=== PATIENT | male | born 1965 | race Caucasian/White ===

== ENCOUNTER 2023-10-12 15:25 | Observation (INO) ==
--- NOTE | 2023-10-12 16:02 | Emergency Department Note ---
Impression & Plan Acute cholecystitis, Abdominal pain, acute, right upper quadrant ED Provider Note NAME: DERECK ARTEAGA AGE: 58 SEX: M : 1965 ARRIVES VIA: Walk-In INFORMANT: Patient, ED PROVIDER(S): Isaias Florez DO CHIEF COMPLAINT: Abdominal pain HPI: The patient is a 58-year-old male who presented to the emergency department for abdominal pain. He notices the pain on the right side. He states he does have generalized abdominal tenderness but notices it mostly right upper quadrant under the ribs. He denies having any vomiting but has had nausea. He denies having any hematemesis or rectal bleeding. The patient's not been seen by his family doctor but came to the emergency department. He did note some symptoms yesterday that worsened after he ate breakfast this morning. He has a history of gastric bypass. ROS: See above HPI for pertinent positives & negatives. A total of 10 systems reviewed and were otherwise negative. PAST MEDICAL HISTORY: See Below PAST SURGICAL HISTORY: See Below FAMILY HISTORY: See Below SOCIAL HISTORY: See Below HOME MEDICATIONS: See Below ALLERGIES: See Below VITALS: See Below PHYSICAL EXAMINATION: GENERAL: Patient is awake alert in no acute distress patient is resting comfortably and showing no signs of anxiety EYES: The conjunctivae are clear. The pupils are round and reactive. EARS, NOSE, MOUTH AND THROAT: The nose is without any evidence of any deformity. Mucous membranes are moist. Tongue is midline. NECK: The neck is nontender and supple. RESPIRATORY: Normal respiratory effort is noted there is no evidence of wheezing rhonchi or rales CARDIOVASCULAR: Regular rate and rhythm noted there no murmurs rubs or gallops normal S1 normal S2. GASTROINTESTINAL: The abdomen is soft and nondistended. There is right upper quadrant tenderness to palpation which is moderate. BACK: No midline tenderness or or step-off noted range of motion in flexion extension as well as rotation no signs of muscle spasm noted MUSCULOSKELETAL/EXTREMITIES: There is no evidence of gross deformity full range of motion is noted in the hips and shoulders. SKIN: There is no obvious evidence of any rash. There are no petechiae, pallor or cyanosis noted. NEUROLOGIC: Patient is awake alert and oriented x3 MEDICAL DECISION MAKING: The patient is a 58-year-old male who presented to the emergency department for right upper quadrant abdominal pain. The patient does have a history of gastric bypass. Abdomen was soft but he does have significant right upper quadrant tenderness to palpation. I discussed the patient's laboratory and radiographic studies with him. Laboratory studies were very reassuring with no elevation in his white blood cell count or abnormal LFTs. Ultimately though the patient was found to have signs of cholecystitis on right upper quadrant ultrasound. I discussed his condition with the on-call general surgeon as well as the on-call [facility] hospitalist. They have agreed to evaluate the patient for further management. Surgery did recommend an MRCP as well as possible GI consultation given the dilated common bile duct. Triage Nursing notes reviewed. Prior medical records reviewed Vital Signs: reviewed and remarkable for elevated blood pressure. Differential diagnosis: Etiologies such as appendicitis, diverticulitis, obstruction, inflammatory bowel disease, renal colic, PUD, biliary pathology, pancreatitis, mesenteric ischemia, aortic pathology, infections, genitourinary, UTI, perforated viscus, as well as others were entertained. ER treatment provided: See below Diagnostics interpreted by me: ECG: none Cardiac Monitoring: An order was placed for continuous cardiac monitoring. The monitor shows a rate of 85 bpm with sinus rhythm. Laboratory studies: As stated above and show below. Imaging studies: See below. Radiographic imaging was reviewed by myself Consultation(s): I discussed this case with Dr. Salomon who is on-call for general surgery. I discussed this case with Dr. Hatch [facility] Past Med/Surg History Problem List (Updated 10/12/23 @ 18:03 by Isaias Florez DO) Abdominal pain, acute, right upper quadrant (Acute) Acute cholecystitis (Acute) Surgical History H/O gastric bypass Social History Smoking Status: Former smoker Feels Safe at Home: Yes Allergies Allergies Allergy/AdvReac Type Severity Reaction Status Date / Time itraconazole Allergy Mild RASH Verified 04/06/09 03:04 Results & Data (ED) Vital Signs Vital Signs - 24 hr 10/12/23 15:29 10/12/23 16:00 10/12/23 16:20 Temperature 36.9 C Temperature Source Temporal Artery Scan Pulse Rate 83 79 81 Pulse Rhythm Regular Respiratory Rate 18 16 Respiratory Effort / Characteristics Non-Labored Spontaneous Respiratory Depth Normal Respiratory Pattern Regular Blood Pressure 173/90 H Blood Pressure Mean 117 Pulse Oximetry 98 94 Oxygen Delivery Method Room Air Room Air Sepsis Recent Fever Within 48 Hours No Sepsis New/Unexplained Change in Mental Status N/A Sepsis Action Taken by Nursing No Action Required 10/12/23 16:30 10/12/23 17:30 10/12/23 18:00 Temperature Temperature Source Pulse Rate 74 79 85 Pulse Rhythm Respiratory Rate 22 14 12 Respiratory Effort / Characteristics Respiratory Depth Respiratory Pattern Blood Pressure 168/90 H 169/95 H 174/97 H Blood Pressure Mean 127 125 124 Pulse Oximetry 99 96 96 Oxygen Delivery Method Sepsis Recent Fever Within 48 Hours Sepsis New/Unexplained Change in Mental Status Sepsis Action Taken by [facility] Medications Current Medication List: was personally reviewed by me Laboratory Data Attestation: I reviewed the patient's lab results. 10/12/23 15:53 10/12/23 15:53 Lab Results 10/12/23 Range/Units 15:53 WBC 5.03 (4.8-10.8) K/ul RBC 5.07 (4.70-6.10) M/uL Hgb 16.0 (14.0-18.0) g/dl Hct 45.4 (42.0-52.0) % MCV 89.5 (80.0-100.0) fL MCH 31.6 (25.0-34.0) pg MCHC 35.2 (32.0-36.0) g/dL RDW Std Deviation 39.1 (36.4-46.3) fL RDW Coeff of Yann 11.9 (11.5-14.5) % Plt Count 166 (130-400) K/uL MPV 9.5 (9.4-12.4) fL Immature Gran % (Auto) 0.4 % Neut % (Auto) 65.2 % Lymph % (Auto) 20.5 % [place] % (Auto) 10.1 % Eos % (Auto) 2.6 % Baso % (Auto) 1.2 % Neut # (Auto) 3.28 (1.40-6.50) K/uL Lymph # (Auto) 1.03 L (1.20-3.40) K/uL [place] # (Auto) 0.51 (0.11-0.59) K/uL Eos # (Auto) 0.13 (0.00-0.50) K/uL Baso # (Auto) 0.06 (0.00-0.20) K/uL Immature Gran # (Auto) 0.02 (0.01-0.20) K/uL Sodium 138 (136-145) mmol/L Potassium 3.9 (3.5-5.1) mmol/L Chloride 102 (98-107) mmol/L Carbon Dioxide 26 (21-32) mmol/L Anion Gap 10 (3-11) BUN 11 (6-23) mg/dl Creatinine 0.91 (0.6-1.4) mg/dl Est Cr Clr Drug Dosing 103.8 ml/min Est GFR ( Amer) 107.3 ml/min Est GFR (Non-Af Amer) 92.6 ml/min BUN/Creatinine Ratio 12.1 (10-20) Glucose 99 (70-99(Fasting)) mg/dl Calcium 9.2 (8.6-10.3) mg/dl Total Bilirubin 0.4 (0.2-1.0) mg/dl AST 19 (13-39) U/L ALT 13 (7-52) U/L Alkaline Phosphatase 47 (34-104) U/L Total Protein 7.2 (6.0-8.3) gm/dl Albumin 4.8 (3.4-5.0) gm/dl Globulin 2.4 L (2.5-4.0) gm/dl Albumin/Globulin Ratio 2.0 (0.9-2) Lipase 23 (11-82) U/L Urine Color Yellow Urine Appearance Clear (Clear) Urine pH 5.5 (4.5-7.5) Ur Specific [place] 1.006 (1.000-1.030) Urine Protein Negative (Negative) Urine Glucose (UA) Negative (Negative) Urine Ketones Negative (Negative) Urine Blood Negative (Negative) Urine Nitrite Negative (Negative) Urine Bilirubin Negative (Negative) Urine Urobilinogen Negative (Negative) Ur Leukocyte Esterase Negative (Negative) Administered Medications Morphine Sulfate (Morphine Sulfate 4 Mg/Ml 1 Ml Carp\Vial) 4 mg IV Q15M PRN PRN Reason: Pain Stop: 10/26/23 15:58 Last Admin: 10/12/23 16:33 Dose: 4 mg Documented By: Admin: 10/12/23 16:12 Dose: 4 mg Documented By: MALINI Discontinued Medications Sodium Chloride (Nss) 1,000 mls @ 999 mls/hr IV .Q1H1M STA Stop: 10/12/23 16:59 Last Infusion: 10/12/23 17:14 Dose: Infused Documented By: Admin: 10/12/23 16:12 Dose: 999 mls/hr Documented By: MALINI Ondansetron HCl (Ondansetron Inj 2 Mg/Ml 2 Ml Vial) 4 mg IV NOW STA Stop: 10/12/23 16:00 Last Admin: 10/12/23 16:12 Dose: 4 mg Documented By: MALINI Imaging Data Attestation: I personally reviewed and interpreted this imaging study as follows: My Impression: 1 view chest x-ray was obtained in the emergency department. My interpretation is no free air or definite full tray, final report below. Radiologist's Impression: Chest X-Ray 10/12/23 15:59 XR chest 1V portable HISTORY: 58 years-old Male RUQ pain acute right upper quadrant abdominal pain COMPARISON: 07/12/2005 TECHNIQUE: AP view of the chest FINDINGS: Cardiac silhouette is upper limits of normal in size. Mild chronic interstitial coarsening. No pneumothorax or pleural effusion. Bones appear grossly intact. IMPRESSION: No acute process. ACT 112: Negative or not required by law. The above report was generated using voice recognition software. It may contain grammatical, syntax or spelling errors. Electronically signed by: Zi Barth M.D. 10/12/2023 4:33 PM Gallbladder Ultrasound 10/12/23 15:59 ABDOMINAL ULTRASOUND, RIGHT UPPER QUADRANT HISTORY: RUQ pain. COMPARISON: None. FINDINGS: Pancreas: The pancreatic tail is obscured by overlying bowel gas. The remaining portions of the pancreas are within normal limits. Liver: 22 cm in length. No hepatic masses. The main portal vein is patent. Gallbladder: The gallbladder is distended and contains multiple gallstones. No definite gallbladder wall thickening which measures up to 2 mm. Trace pericholecystic fluid is noted. The technologist reports a positive sonographic Shaw sign. CBD: Dilated up to 1.1 cm. Right kidney: No hydronephrosis. IMPRESSION: 1. Distended gallbladder with multiple gallstones and trace pericholecystic fluid. The technologist reported a positive sonographic Shaw sign. Therefore, these findings are concerning for an acute cholecystitis. Surgical consultation recommended. 2. Dilated common bile duct measuring up to 1.1 cm. 3. Hepatomegaly. ACT 112: Negative or not required by law. Electronically signed by: Dalton Kirby M.D. 10/12/2023 5:58 PM Discharge Plan Visit Data Chief Complaint: Abdominal Pain Stated Complaint: ABD PAIN, REF BY DOC ED Provider: Isaias Florez Discharge Problem: Acute cholecystitis, Abdominal pain, acute, right upper quadrant Patient Disposition: Being Evaluated by Hospitalist Forms Stand Alone Forms: My [facility] Referrals Referrals: Susan Herrera CRNP [Primary Care Provider] -
[2023-10-12 16:11] LABS: Appearance Urine Clear (Clear); Bilirubin Urine Negative (Negative); Blood Urine Negative (Negative); Color Urine Yellow; Glucose Urine UA Negative (Negative); Ketones Urine Negative (Negative); Leukocyte Esterase Urine Negative (Negative); Nitrite Urine Negative (Negative); Protein Urine Negative (Negative); Specific Gravity Urine 1.006 (1.000-1.030); Urobilinogen Urine Negative (Negative); pH Urine 5.5 (4.5-7.5)
[2023-10-12] MEDS: ONDANSETRON INJ 2 MG/ML 2 ML VIAL IV STA (16:12)
[2023-10-12] MEDS: SODIUM CHLORIDE 0.9% 1,000 ML IV STA (16:12)
[2023-10-12] MEDS: MoRPHine SULFATE 4 MG/ML 1 ML CARP\\VIAL IV PRN (16:12)
[2023-10-12 16:15] LABS: Basophils # (auto) 0.06 K/uL (0.00-0.20); Basophils % (auto) 1.2 %; Eosinophils # (auto) 0.13 K/uL (0.00-0.50); Eosinophils % (auto) 2.6 %; Hematocrit (blood only) 45.4 % (42.0-52.0); Immature Granulocytes # (auto) 0.02 K/uL (0.01-0.20); Immature Granulocytes % (auto) 0.4 %; Lymphocytes # (auto) 1.03 K/uL (1.20-3.40); Lymphocytes % (auto) 20.5 %; Mean Corpuscular Hemoglobin 31.6 pg (25.0-34.0); Mean Corpuscular Hgb Conc 35.2 g/dL (32.0-36.0); Mean Corpuscular Volume 89.5 fL (80.0-100.0); Mean Platelet Volume 9.5 fL (9.4-12.4); Monocytes # (auto) 0.51 K/uL (0.11-0.59); Monocytes % (auto) 10.1 %; Neutrophils # (auto) 3.28 K/uL (1.40-6.50); Neutrophils % (auto) 65.2 %; Platelet Count 166 K/uL (130-400); RDW Coefficient of Variation 11.9 % (11.5-14.5); RDW Standard Deviation 39.1 fL (36.4-46.3); Red Blood Count 5.07 M/uL (4.70-6.10); White Blood Count 5.03 K/ul (4.8-10.8)
[2023-10-12 16:33] LABS: Albumin Level 4.8 gm/dl (3.4-5.0); BUN Creatinine Ratio 12.1 (10-20); Bilirubin,Total 0.4 mg/dl (0.2-1.0); Calcium 9.2 mg/dl (8.6-10.3); Creatinine Clr Calc Pharmacy 103.8 ml/min; Est GFR (African American) 107.3 ml/min; Est GFR (Non-African American) 92.6 ml/min; Globulin 2.4 gm/dl (2.5-4.0); Potassium 3.9 mmol/L (3.5-5.1); Total Protein 7.2 gm/dl (6.0-8.3)
--- NOTE | 2023-10-12 16:34 | XRay Report ---
XR chest 1V portable HISTORY: 58 years-old Male RUQ pain acute right upper quadrant abdominal pain COMPARISON: 07/12/2005 TECHNIQUE: AP view of the chest FINDINGS: Cardiac silhouette is upper limits of normal in size. Mild chronic interstitial coarsening. No pneumo thorax or pleural effusion. Bones appear grossly intact. IMPRESSION: No acute process. ACT 112: Negative or not required by law. The above report was generated using voice recognition software. It may contain grammatical, syntax o r spelling errors. Electronically signed by: Zi Barth M.D. 10/12/2023 4:33 PM
--- NOTE | 2023-10-12 17:59 | Ultrasound Report ---
ABDOMINAL ULTRASOUND, RIGHT UPPER QUADRANT HISTORY: RUQ pain. COMPARISON: None. FINDINGS: Pancreas: The pancreatic tail is obscured by overlying bowel gas. The remaining portions of the pancr eas are within normal limits. Liver: 22 cm in length. No hepatic masses. The main portal vein is patent. Gallbladder: The gallbladder is distended and contains multiple gallstones. No definite gallbladder w all thickening which measures up to 2 mm. Trace pericholecystic fluid is noted. The technologist repo rts a positive sonographic Shaw sign. CBD: Dilated up to 1.1 cm. Right kidney: No hydronephrosis. IMPRESSION: 1. Distended gallbladder with multiple gallstones and trace pericholecystic fluid. The technologist r eported a positive sonographic Shaw sign. Therefore, these findings are concerning for an acute cho lecystitis. Surgical consultation recommended. 2. Dilated common bile duct measuring up to 1.1 cm. 3. Hepatomegaly. ACT 112: Negative or not required by law. Electronically signed by: Dalton Kirby M.D. 10/12/2023 5:58 PM
[2023-10-12] MEDS: PIPERACILLIN/TAZOBACTAM 4.5 GM/100 ML BAG IV ONE (18:10)
--- NOTE | 2023-10-12 18:11 | History & Physical Report ---
Date of Service October 12, 2023 Assessment & Plan (1) Acute cholecystitis: Plan: Acute onset of intermittent RUQ abdominal pain that began the evening of 10/10 No leukocytosis; afebrile; LFTs WNL However, gallbladder ultrasound revealed findings concerning for acute ch olecystitis; CBD dilated at 1.1 cm General surgery consulted; will plan to take to the OR tomorrow MRCP ordered, pending Keep n.p.o. for now Zosyn 4.5 g IV q8h Acetaminophen and Dilaudid IV as needed for pain Zofran as needed for nausea/vomiting A.m. CBC, CMP, mag (2) Alcohol use: Plan: Patient reports he currently drinks 8 beers per day, and has done so for many years Denies history of alcohol withdrawal or seizures AWSS at risk protocol with ativan as needed Daily IV thiamine and folate supplementation Hemodynamically stable at time of admission; will place on continuous telemetry monitoring for now (3) Depression: Plan: Hold p.o. antidepressants for now; okay to restart pending surgery consult (4) H/O gastric bypass: Plan: At [facility] [place] [facility] approx 15 y ago Plan Disposition: Admit to [facility] with telemetry Full code N.p.o. for now VTE PPx: SCDs History of Present Illness Chief Complaint: RUQ abdominal pain Primary Care Provider: JORGE Watkins is a pleasant 58-year-old male with significant PMH of depression and gastric bypass surgery. He presented for intermittent RUQ abdominal pain that began the evening of 10/10. He reports an acute exacerbation after eating br eakfast this morning, which then faded, but returned after trying to eat a small amount of lunch. The pain is in his right upper quadrant and radiates to his right upper scapula. He describes it as an intermittent, burning pain. Exacerbated by eating and palpating the right upper quadrant. He rates the pain 6/10 at present, 8/10 at worst. He did not take any pain medicine prior to coming in. He does have a history of gastric bypass surgery at [place] 15 years ago. Patient reports no prior history of gallbladder issues. No PMH of OR, stroke, or vascular disease. He is formally a type II diabetic, but is currently prediabetic, and reports his A1c has continually been dropping on rechecks. Patient took his regular morning medicines today; no recent change in medications. Patient denies any recent smoking or tobacco use; quit smoking 20 years ago. He is a current everyday alcohol drinker. He reports that he drinks 8 beers per day. Last drink was this morning around lunchtime (1 beer). He denies history of alcohol withdrawal or seizures. He has been drinking approximately 8 beers per day for many years now, and will occasionally have mixed drinks. No history of pancreatitis to his knowledge. Patient is hypertensive at 154/97 at time of admission; vitals otherwise stable. 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 Patient denies fever, chills, night-sweats, dizziness, lightheadedness, chest pain, SOB, pleuritic CP, vomiting, and blood in the urine/stool. Allergies Allergy/AdvReac Type Severity Reaction Status Date / Time itraconazole Allergy Mild RASH Verified 04/06/09 03:04 Home Medications Medication Instructions Recorded Confirmed Type aripiprazole 5 mg tablet 2.5 mg PO QAM 10/12/23 10/12/23 History bupropion HCl 100 mg tablet,12 hr 100 mg PO QAM 10/12/23 10/12/23 History sustained-release escitalopram oxalate 20 mg tablet 20 mg PO QAM 10/12/23 10/12/23 History gabapentin 600 mg tablet 600 mg PO QPM 10/12/23 10/12/23 History lamotrigine 200 mg tablet 200 mg PO QPM 10/12/23 10/12/23 History multivitamin with minerals-folic 1 tab PO DAILY 10/12/23 10/12/23 History acid 200 mcg chewable tablet (Multivitamin Gummies) sildenafil 100 mg tablet 100 mg PO DIRECTED PRN .before 10/12/23 10/12/23 History sexual activity Past Med/Surg History Problem List (Updated 10/12/23 @ 18:49 by Dalton Issa PA-C) Alcohol use H/O gastric bypass Depression Abdominal pain, acute, right upper quadrant (Acute) Acute cholecystitis (Acute) Surgical History H/O gastric bypass Social History Smoking Status: Former smoker Feels Safe at Home: Yes Review of Systems Review of Systems: See HPI above Physical Exam Physical Exam: General: no acute distress; pleasant affect; non-toxic appearing; well- nourished; cooperative; HEENT: normocephalic, atraumatic; no scleral icterus; PERRLA w/ EOMs intact; vision and hearing grossly intact Neck: supple; no lymphadenopathy; trachea midline Skin: warm, dry without signs of tenting; no cyanosis; no rashes, bruising, lesions, or erythema noted CV: chest wall NTP; RRR; S1/S2 normal; no murmurs/rubs/gallops; pulses intact and symmetric at radial, DP, and PT Lungs: no acute respiratory distress; symmetrical chest wall expansion; clear breath sounds across all lung snyder w/o adventitious sounds; no wheezing ABD: Soft; RUQ and RLQ are TTP; positive Shaw sign; BS present; no rebound/guarding; no distention; no rashes or bruising on the abdomen or flanks bilaterally MSK: no tics or fasciculations; no edema noted in the LEs b/l, nonerythematous Neuro: A&Ox3; normal mood and affect; fluent speech; no focal deficits; sensation grossly intact in the LEs b/l Results & Data Results & Data Vital Signs (Past 12 Hours) Vital Signs Temp Pulse Resp BP Pulse Ox O2 Del Method 10/12/23 18:00 85 12 174/97 H 96 10/12/23 17:30 79 14 169/95 H 96 10/12/23 16:30 74 22 168/90 H 99 10/12/23 16:20 81 10/12/23 16:00 79 16 94 Room Air 10/12/23 15:29 36.9 C 83 18 173/90 H 98 Room Air Laboratory Results Abnormal lab results 10/12/23 Range/Units 15:53 Lymph # (Auto) 1.03 L (1.20-3.40) K/uL Globulin 2.4 L (2.5-4.0) gm/dl Diagnostic Findings Chest X-Ray 10/12/23 15:59 XR chest 1V portable HISTORY: 58 years-old Male RUQ pain acute right upper quadrant abdominal pain COMPARISON: 07/12/2005 TECHNIQUE: AP view of the chest FINDINGS: Cardiac silhouette is upper limits of normal in size. Mild chronic interstitial coarsening. No pneumothorax or pleural effusion. Bones appear grossly intact. IMPRESSION: No acute process. ACT 112: Negative or not required by law. The above report was generated using voice recognition software. It may contain grammatical, syntax or spelling errors. Electronically signed by: Zi Barth M.D. 10/12/2023 4:33 PM Gallbladder Ultrasound 10/12/23 15:59 ABDOMINAL ULTRASOUND, RIGHT UPPER QUADRANT HISTORY: RUQ pain. COMPARISON: None. FINDINGS: Pancreas: The pancreatic tail is obscured by overlying bowel gas. The remaining portions of the pancreas are within normal limits. Liver: 22 cm in length. No hepatic masses. The main portal vein is patent. Gallbladder: The gallbladder is distended and contains multiple gallstones. No definite gallbladder wall thickening which measures up to 2 mm. Trace pericholecystic fluid is noted. The technologist reports a positive sonographic Shaw sign. CBD: Dilated up to 1.1 cm. Right kidney: No hydronephrosis. IMPRESSION: 1. Distended gallbladder with multiple gallstones and trace pericholecystic fluid. The technologist reported a positive sonographic Shaw sign. Therefore, these findings are concerning for an acute cholecystitis. Surgical consultation recommended. 2. Dilated common bile duct measuring up to 1.1 cm. 3. Hepatomegaly. ACT 112: Negative or not required by law. Electronically signed by: Dalton Kirby M.D. 10/12/2023 5:58 PM ECG Additional Comments: EKG ordered, pending Code Status & VTE Plan Code Status Full code VTE Prophylaxis Plan VTE Prophylaxis will be ordered: Yes Supervising Physician Co-Signing Physician Notes I have personally seen, evaluated and examined the patient. I have also personally discussed the management of the patient with the resident physician/DEMOND and I agree with the exam findings documented in the history and physical examination and the documented assessment and plan unless otherwise stated below. Brief Exam: In general pleasant 58-year-old male accompanied by his and his daughter at the time my exam. He does anthony permission for them to be in the room during my exam and interview. He denies any gladys pain at this time. The morphine has helped his discomfort. He denies any other symptomatology except nausea which is somewhat improved as well. HEENT: Normocephalic atraumatic. No scleral icterus. Heart: Regular rate and rhythm no murmur or ectopy or rub. Lungs: Clear bilaterally. Abdomen: Flat soft tender to palpation midepigastric region and right upper quadrant no rebound. No peritoneal sign. Extremities: Intact no peripheral cyanosis clubbing or edema. Neurologically patient is alert and oriented x 3. No focal deficit on exam. Assessment/plan: As described above. Alcohol withdrawal protocol implemented. We did speak with the patient the last time he wanted 24. Without any alcohol was approximately a year ago. September 2022 had a colonoscopy. At that time he was drinking around 8 beers per day and he had no evidence of alcohol withdrawal at that time according to him there was no confusion no shakes excetra. General surgery consultation. MRCP tonight. IV Zosyn. NPO. If he has common bile duct stone is present we will proceed with GI consultation for potential ERCP. Please refer to orders for further planning. PG Care Time/CCT Total # of Minutes Spent Total Time Spent with Patient: Total time spent is greater than 50% in coordination of care (as documented) at patient's floor/unit and/or counseling patient: [place] [address] INT INP/OBS CARE 3/75MIN Patient Type New Medical Decision Making Moderate Complexity Diagnoses Acute cholecystitis K81.0 Alcohol use Z78.9 Depression F32.A H/O gastric bypass Z98.84
[2023-10-12] MEDS ORDERED: LORazepam 1 MG in SYRINGE 0.5 ML IV PRN (18:52)
[2023-10-12] MEDS: LACTATED RINGER'S 1,000 ML IV SCH (19:40)
--- NOTE | 2023-10-12 20:35 | Magnetic Resonance Report ---
Exam(s): MRI MRCP EXAM: MR Abdomen Without Intravenous Contrast, MRCP Protocol CLINICAL HISTORY: Reason for exam: Acute cholecystitis; CBD dilation 1.1 cm. TECHNIQUE: Multiplanar magnetic resonance images of the abdomen without intravenous contrast using MRCP protocol. COMPARISON: Ultrasound from October 12, 2023 FINDINGS: Bile ducts: The common bile duct is nondilated measuring 8 mm. No clear evidence of choledocholithiasis. Gallbladder: The gallbladder is borderline dilated measuring 5 cm short axis diameter. There is a 1.7 cm thick layer of calculi ranging in size from 2-14 mm layering posteriorly within the gallbladder. No wall thickening or surrounding fluid is seen. Liver: The liver is enlarged measuring 20 cm craniocaudad. No focal liver mass lesion is seen. Pancreas: Unremarkable. No ductal dilation. Spleen: The spleen measures 12.7 cm. Adrenals: Unremarkable. No mass. Kidneys and ureters: There is a 8 mm simple cyst in the right kidney. No follow-up is required. No hydronephrosis. Stomach and bowel: Unremarkable. No obstruction. IMPRESSION: 1. The liver is enlarged measuring 20 cm craniocaudad. No focal liver mass lesion is seen. 2. The gallbladder is borderline dilated measuring 5 cm short axis diameter. There is a 1.7 cm thick layer of calculi ranging in size from 2-14 mm layering posteriorly within the gallbladder. No wall thickening or surrounding fluid is seen. 3. The common bile duct is nondilated measuring 8 mm. No clear evidence of choledocholithiasis. Electronically signed by: Jason Aparicio MD 10/12/23 20:34 PM
[2023-10-12] MEDS ORDERED: HYDROmorphone INJ 0.5 MG/0.5 ML SYR IV PRN (21:54)
[2023-10-12] MEDS: HYDROmorphone INJ 1 MG/ML SYRINGE IV PRN (22:24)
[2023-10-13] MEDS: PIPERACILLIN/TAZOBACTAM 4.5 GM in DEXTROSE 5% MINI-B 100 ML IV SCH (00:34)
[2023-10-13] MEDS: ACETAMINOPHEN 1,000 MG/100 ML VIAL IV PRN (02:04)
[2023-10-13 06:02] LABS: Basophils # (auto) 0.03 K/uL (0.00-0.20); Basophils % (auto) 0.5 %; Eosinophils # (auto) 0.02 K/uL (0.00-0.50); Eosinophils % (auto) 0.3 %; Hematocrit (blood only) 40.1 % (42.0-52.0); Immature Granulocytes # (auto) 0.02 K/uL (0.01-0.20); Immature Granulocytes % (auto) 0.3 %; Lymphocytes # (auto) 0.31 K/uL (1.20-3.40); Lymphocytes % (auto) 4.9 %; Mean Corpuscular Hemoglobin 31.6 pg (25.0-34.0); Mean Corpuscular Hgb Conc 34.9 g/dL (32.0-36.0); Mean Corpuscular Volume 90.5 fL (80.0-100.0); Mean Platelet Volume 9.9 fL (9.4-12.4); Monocytes # (auto) 0.52 K/uL (0.11-0.59); Monocytes % (auto) 8.2 %; Neutrophils # (auto) 5.44 K/uL (1.40-6.50); Neutrophils % (auto) 85.8 %; Platelet Count 133 K/uL (130-400); RDW Coefficient of Variation 11.9 % (11.5-14.5); RDW Standard Deviation 39.5 fL (36.4-46.3); Red Blood Count 4.43 M/uL (4.70-6.10); White Blood Count 6.34 K/ul (4.8-10.8)
[2023-10-13 06:16] LABS: Albumin Level 3.9 gm/dl (3.4-5.0); BUN Creatinine Ratio 9.7 (10-20); Bilirubin,Total 3.3 mg/dl (0.2-1.0); Calcium 8.6 mg/dl (8.6-10.3); Est GFR (African American) 92.4 ml/min; Est GFR (Non-African American) 79.7 ml/min; Magnesium 1.7 mg/dl (1.7-2.4); Potassium 4.3 mmol/L (3.5-5.1); Total Protein 5.9 gm/dl (6.0-8.3)
[2023-10-13] MEDS: THIAMINE HCL 100 MG in SYRINGE 9 ML IV SCH (07:48)
[2023-10-13] MEDS: FOLIC ACID 1 MG in SYRINGE 9.8 ML IV SCH (07:49)
--- NOTE | 2023-10-13 09:03 | Surgery Consultation ---
Date of Consultation October 13, 2023 Assessment & Plan (1) Abdominal pain, acute, right upper quadrant: (2) Acute cholecystitis: (3) Total bilirubin, elevated: (4) Elevated LFTs: Plan 58 year old male with 1.5 day history of RUQ pain , worse postprandial with associated nausea and chills with ultrasound showing distended gallbladder with stones and positive shaw sign on exam. Dilated cbd at 1.1 cm on ultrasound prompting MRCP which was negative for choledocholithiasis however t. bili , lfts, and alk phos all bumped this am (normal yesterday). T. bili up to 3.3. concern for possbile choledochollithiasis even with negative MRCP. Discussed imaging and lab findings with patient and family. Will consult GI service for evaluation of possible ERCP however given his history of gastric bypass my require transfer for advanced endoscopist for ERCP. Discussed with Dr. Romero who agrees with above. History of Present Illness Reason for Consultation: Acute calculous cholecystitis Requesting Physician: Dalton Kam PA-C Attending Physician: Matthew Braga MD History of Present Illness Mr. Tubbs is a 58 year-old male with history of depression, alcohol use, gastric bypass 15 years ago, and history of right lung lobectomy for fungal infection presented to ED with RUQ abdominal pain with associated nausea that started Thursday evening and worsened with food intake yesterday. Pain would last for a few hours after eating then slowly improve. Pain sharp in nature and radiates around to right back. Associated nausea but no vomiting. Chills and sweats last night, no fevers at home. No chest pain or shortness of breath. No history of prior gallbladder issues. No blood thinning agents. History of laparoscopic gastric bypass 15 years ago then had a complication with bleeding in liver which required 7 units of blood. No other abdominal surgeries.No changes in bowel habits other than some loose stools. No jaundice. no difficulty urinating. Currently states he was feeling better last evening but then pain started to increase this morning and required Dilaudid, Urine look dark this morning. Allergies Allergy/AdvReac Type Severity Reaction Status Date / Time itraconazole Allergy Mild RASH Verified 04/06/09 03:04 Home Medications Medication Instructions Recorded Confirmed Type aripiprazole 5 mg tablet 2.5 mg PO QAM 10/12/23 10/12/23 History bupropion HCl 100 mg tablet,12 hr 100 mg PO QAM 10/12/23 10/12/23 History sustained-release escitalopram oxalate 20 mg tablet 20 mg PO QAM 10/12/23 10/12/23 History gabapentin 600 mg tablet 600 mg PO QPM 10/12/23 10/12/23 History lamotrigine 200 mg tablet 200 mg PO QPM 10/12/23 10/12/23 History multivitamin with minerals-folic 1 tab PO DAILY 10/12/23 10/12/23 History acid 200 mcg chewable tablet (Multivitamin Gummies) sildenafil 100 mg tablet 100 mg PO DIRECTED PRN .before 10/12/23 10/12/23 History sexual activity Patient History Surgical History (Updated 10/13/23 @ 09:19 by Lali Perry PA-C) H/O gastric bypass Social History Smoking Status: Former smoker Hx Alcohol Use: Yes Alcohol type: beer Hx Substance Use: No Preferred Language: Estonian Communication Ability: Effective Diamond Expert Required: No Beliefs That Will Affect Care: None Current Living Situation: Spouse Other Information That Helps Us Care for You: No Feels Safe at Home: Yes Safety Concerns: Feels Safe At This Time Review of Systems Review of Systems: All systems reviewed & are unremarkable except as noted in HPI & below Physical Exam Constitutional: WD/WN, vitals as above cooperative and comfortable; no acute distress Respiratory: normal respiratory effort, lungs clear to auscultation Cardiovascular: RRR, no murmur, no edema Gastrointestinal (Abdomen): Inspection/Auscultation: abdomen normal to inspection and + abdominal surgical scar (laparoscopic scars); abdomen not distended Percussion/Palpation: + abdomen tender (RUQ) and abdomen soft; no guarding, abdomen not rigid and abdomen not firm Skin: no rashes, warm and dry no jaundice Psychiatric: A+Ox3, euthymic affect Results & Data Vital Signs (Past 12 Hours) Vital Signs Temp Pulse Pulse Resp BP Pulse Ox O2 Del Method 10/13/23 07:45 Room Air 10/13/23 07:26 37.1 C 101 H 18 133/78 96 Room Air 10/13/23 07:00 107 H 10/13/23 03:45 37.6 C H 108 H 18 128/78 93 Room Air 10/13/23 02:44 112 H 18 116/75 91 Room Air 10/13/23 01:58 38.1 C H 10/13/23 00:35 98 H 160/82 H 10/12/23 21:57 105 H 10/12/23 21:50 37.5 C 109 H 18 177/87 H 95 Room Air 10/12/23 21:50 37.5 C 109 H 18 177/87 H 95 Room Air Laboratory Results 10/13/23 10/12/23 10/12/23 Range/Units 05:31 19:51 15:53 WBC 6.34 5.03 (4.8-10.8) K/ul RBC 4.43 L 5.07 (4.70-6.10) M/uL Hgb 14.0 16.0 (14.0-18.0) g/dl Hct 40.1 L 45.4 (42.0-52.0) % MCV 90.5 89.5 (80.0-100.0) fL MCH 31.6 31.6 (25.0-34.0) pg MCHC 34.9 35.2 (32.0-36.0) g/dL RDW Std Deviation 39.5 39.1 (36.4-46.3) fL RDW Coeff of Yann 11.9 11.9 (11.5-14.5) % Plt Count 133 166 (130-400) K/uL MPV 9.9 9.5 (9.4-12.4) fL Immature Gran % (Auto) 0.3 0.4 % Neut % (Auto) 85.8 65.2 % Lymph % (Auto) 4.9 20.5 % [place] % (Auto) 8.2 10.1 % Eos % (Auto) 0.3 2.6 % Baso % (Auto) 0.5 1.2 % Neut # (Auto) 5.44 3.28 (1.40-6.50) K/uL Lymph # (Auto) 0.31 L 1.03 L (1.20-3.40) K/uL [place] # (Auto) 0.52 0.51 (0.11-0.59) K/uL Eos # (Auto) 0.02 0.13 (0.00-0.50) K/uL Baso # (Auto) 0.03 0.06 (0.00-0.20) K/uL Immature Gran # (Auto) 0.02 0.02 (0.01-0.20) K/uL Sodium 138 138 (136-145) mmol/L Potassium 4.3 3.9 (3.5-5.1) mmol/L Chloride 102 102 (98-107) mmol/L Carbon Dioxide 31 26 (21-32) mmol/L Anion Gap 5 10 (3-11) BUN 10 11 (6-23) mg/dl Creatinine 1.03 0.91 (0.6-1.4) mg/dl Est Cr Clr Drug Dosing 91.0 103.8 ml/min Est GFR ( Amer) 92.4 107.3 ml/min Est GFR (Non-Af Amer) 79.7 92.6 ml/min BUN/Creatinine Ratio 9.7 L 12.1 (10-20) Glucose 143 H 99 (70-99(Fasting)) mg/dl Calcium 8.6 9.2 (8.6-10.3) mg/dl Magnesium 1.7 (1.7-2.4) mg/dl Total Bilirubin 3.3 H D 0.4 (0.2-1.0) mg/dl AST 827 H 19 (13-39) U/L ALT 370 H 13 (7-52) U/L Alkaline Phosphatase 146 H D 47 (34-104) U/L Total Protein 5.9 L 7.2 (6.0-8.3) gm/dl Albumin 3.9 4.8 (3.4-5.0) gm/dl Globulin 2.0 L 2.4 L (2.5-4.0) gm/dl Albumin/Globulin Ratio 2.0 2.0 (0.9-2) Lipase 23 (11-82) U/L Urine Color Yellow Urine Appearance Clear (Clear) Urine pH 5.5 (4.5-7.5) Ur Specific [place] 1.006 (1.000-1.030) Urine Protein Negative (Negative) Urine Glucose (UA) Negative (Negative) Urine Ketones Negative (Negative) Urine Blood Negative (Negative) Urine Nitrite Negative (Negative) Urine Bilirubin Negative (Negative) Urine Urobilinogen Negative (Negative) Ur Leukocyte Esterase Negative (Negative) Ethyl Alcohol mg/dL < 10.0 (<10.0) mg/dl Diagnostic Findings ABDOMINAL ULTRASOUND, RIGHT UPPER QUADRANT HISTORY: RUQ pain. COMPARISON: None. FINDINGS: Pancreas: The pancreatic tail is obscured by overlying bowel gas. The remaining portions of the pancreas are within normal limits. Liver: 22 cm in length. No hepatic masses. The main portal vein is patent. Gallbladder: The gallbladder is distended and contains multiple gallstones. No definite gallbladder wall thickening which measures up to 2 mm. Trace pericholecystic fluid is noted. The technologist reports a positive sonographic Shaw sign. CBD: Dilated up to 1.1 cm. Right kidney: No hydronephrosis. IMPRESSION: 1. Distended gallbladder with multiple gallstones and trace pericholecystic fluid. The technologist reported a positive sonographic Shaw sign. Therefore, these findings are concerning for an acute cholecystitis. Surgical consultation recommended. 2. Dilated common bile duct measuring up to 1.1 cm. 3. Hepatomegaly. Exam(s): MRI MRCP EXAM: MR Abdomen Without Intravenous Contrast, MRCP Protocol CLINICAL HISTORY: Reason for exam: Acute cholecystitis; CBD dilation 1.1 cm. TECHNIQUE: Multiplanar magnetic resonance images of the abdomen without intravenous contrast using MRCP protocol. COMPARISON: Ultrasound from October 12, 2023 FINDINGS: Bile ducts: The common bile duct is nondilated measuring 8 mm. No clear evidence of choledocholithiasis. Gallbladder: The gallbladder is borderline dilated measuring 5 cm short axis diameter. There is a 1.7 cm thick layer of calculi ranging in size from 2-14 mm layering posteriorly within the gallbladder. No wall thickening or surrounding fluid is seen. Liver: The liver is enlarged measuring 20 cm craniocaudad. No focal liver mass lesion is seen. Pancreas: Unremarkable. No ductal dilation. Spleen: The spleen measures 12.7 cm. Adrenals: Unremarkable. No mass. Kidneys and ureters: There is a 8 mm simple cyst in the right kidney. No follow-up is required. No hydronephrosis. Stomach and bowel: Unremarkable. No obstruction. IMPRESSION: 1. The liver is enlarged measuring 20 cm craniocaudad. No focal liver mass lesion is seen. 2. The gallbladder is borderline dilated measuring 5 cm short axis diameter. There is a 1.7 cm thick layer of calculi ranging in size from 2-14 mm layering posteriorly within the gallbladder. No wall thickening or surrounding fluid is seen. 3. The common bile duct is nondilated measuring 8 mm. No clear evidence of choledocholithiasis.
--- NOTE | 2023-10-13 10:42 | Gastrointestinal Consultation ---
Date of Consultation October 13, 2023 Assessment & Plan (1) Elevated LFTs: 58 year old male with history of RYGB admitted with acute cholecystitis, LFTs acutely elevated overnight, imaging shows biliary dilation. He would benefit from EUS/ERCP evaluation. Given his RYGB, after discussion with attending, we will not be able to offer this locally. He would need to be evaluated by an advanced biliary team, [place] [facility] [place] [facility] [place] Continue ABX. Trend LFTs. CCY per general surgery I spent a total of 60 minutes on the date of service in review of patient's record, and previously obtained information in person and appropriate medical visit, discussion and education of plan, with patient and/or caregiver, placing orders for tests/referral/procedures as medically necessary and documentation of pertinent clinical information in patient's medical records for their visit today.Thank you for allowing us to participate in the care of this patient. Please call with any acute changes, questions or concerns. Please see addendum below with additional recommendation from my supervising physician. Supervising Physician Co-Signing Physician Notes I saw and examined this patient with our nurse practitioner and agree with her assessment and plan. Mild right upper quadrant tenderness no rebound or guarding. Clinical picture consistent with acute cholecystitis as well as choledocholithiasis. No signs of cholangitis on empiric antibiotic therapy. Ultimately will need cholecystectomy as well as attempted endoscopic of potential CBD stones. Light of his altered anatomy he will need to be transferred to [place]. History of Present Illness Reason for Consultation: elevated LFTs Requesting Physician: Omi Attending Physician: Matthew Braga MD History of Present Illness 58 year old male with history of [place] [facility] [place] presented with RUQ abd pain sine 10/10 - admitted with acute cholecystitis. There was a plan for CCY today, however, LFTs acutely elevated overnight prompting GI evaluation. Pt was seen and evaluated, chart reviewed. Endorses pain is improved but still present. Tbili 0.4 --> 3.3 AST 19 --> 827 ALT 13 --> 370 ALKP 47 --> 146 MRCP 2023: 1. The liver is enlarged measuring 20 cm craniocaudad. No focal liver mass lesion is seen. 2. The gallbladder is borderline dilated measuring 5 cm short axis diameter. There is a 1.7 cm thick layer of calculi ranging in size from 2-14 mm layering posteriorly within the gallbladder. No wall thickening or surrounding fluid is seen. 3. The common bile duct is nondilated measuring 8 mm. No clear evidence of choledocholithiasis. ABD US 2023: . Distended gallbladder with multiple gallstones and trace pericholecystic fluid. The technologist reported a positive sonographic Shaw s ign. Therefore, these findings are concerning for an acute cholecystitis. Surgical consultation recommended. 2. Dilated common bile duct measuring up to 1.1 cm. 3. Hepatomegaly. Allergies Allergy/AdvReac Type Severity Reaction Status Date / Time itraconazole Allergy Mild RASH Verified 04/06/09 03:04 Home Medications Medication Instructions Recorded Confirmed Type aripiprazole 5 mg tablet 2.5 mg PO QAM 10/12/23 10/12/23 History bupropion HCl 100 mg tablet,12 hr 100 mg PO QAM 10/12/23 10/12/23 History sustained-release escitalopram oxalate 20 mg tablet 20 mg PO QAM 10/12/23 10/12/23 History gabapentin 600 mg tablet 600 mg PO QPM 10/12/23 10/12/23 History lamotrigine 200 mg tablet 200 mg PO QPM 10/12/23 10/12/23 History multivitamin with minerals-folic 1 tab PO DAILY 10/12/23 10/12/23 History acid 200 mcg chewable tablet (Multivitamin Gummies) sildenafil 100 mg tablet 100 mg PO DIRECTED PRN .before 10/12/23 10/12/23 History sexual activity Patient History Surgical History (Updated 10/13/23 @ 09:19 by Lali Perry PA-C) H/O gastric bypass Social History Smoking Status: Former smoker Hx Alcohol Use: Yes Alcohol type: beer Hx Substance Use: No Preferred Language: Com[place]an Communication Ability: Effective Supervisor Shuttle Veneering Required: No Beliefs That Will Affect Care: None Current Living Situation: Spouse Other Information That Helps Us Care for You: No Feels Safe at Home: Yes Safety Concerns: Feels Safe At This Time Assistive Devices: None Review of Systems Review of Systems: All other findings negative except as noted in HPI. Physical Exam Constitutional: WD/WN, vitals as above Respiratory: normal respiratory effort, lungs clear to auscultation Cardiovascular: RRR, no murmur, no edema Gastrointestinal (Abdomen): Inspection/Auscultation: normal bowel sounds Percussion/Palpation: + abdomen tender and abdomen soft; no guarding and abdomen not rigid Skin: no rashes, warm and dry Results & Data Vital Signs (Past 12 Hours) Vital Signs Temp Pulse Pulse Resp BP Pulse Ox O2 Del Method 10/13/23 07:45 Room Air 10/13/23 07:26 37.1 C 101 H 18 133/78 96 Room Air 10/13/23 07:00 107 H 10/13/23 03:45 37.6 C H 108 H 18 128/78 93 Room Air 10/13/23 02:44 112 H 18 116/75 91 Room Air 10/13/23 01:58 38.1 C H 10/13/23 00:35 98 H 160/82 H Laboratory Results 10/13/23 10/12/23 10/12/23 Range/Units 05:31 19:51 15:53 WBC 6.34 5.03 (4.8-10.8) K/ul RBC 4.43 L 5.07 (4.70-6.10) M/uL Hgb 14.0 16.0 (14.0-18.0) g/dl Hct 40.1 L 45.4 (42.0-52.0) % MCV 90.5 89.5 (80.0-100.0) fL MCH 31.6 31.6 (25.0-34.0) pg MCHC 34.9 35.2 (32.0-36.0) g/dL RDW Std Deviation 39.5 39.1 (36.4-46.3) fL RDW Coeff of Yann 11.9 11.9 (11.5-14.5) % Plt Count 133 166 (130-400) K/uL MPV 9.9 9.5 (9.4-12.4) fL Immature Gran % (Auto) 0.3 0.4 % Neut % (Auto) 85.8 65.2 % Lymph % (Auto) 4.9 20.5 % [place] % (Auto) 8.2 10.1 % Eos % (Auto) 0.3 2.6 % Baso % (Auto) 0.5 1.2 % Neut # (Auto) 5.44 3.28 (1.40-6.50) K/uL Lymph # (Auto) 0.31 L 1.03 L (1.20-3.40) K/uL [place] # (Auto) 0.52 0.51 (0.11-0.59) K/uL Eos # (Auto) 0.02 0.13 (0.00-0.50) K/uL Baso # (Auto) 0.03 0.06 (0.00-0.20) K/uL Immature Gran # (Auto) 0.02 0.02 (0.01-0.20) K/uL Sodium 138 138 (136-145) mmol/L Potassium 4.3 3.9 (3.5-5.1) mmol/L Chloride 102 102 (98-107) mmol/L Carbon Dioxide 31 26 (21-32) mmol/L Anion Gap 5 10 (3-11) BUN 10 11 (6-23) mg/dl Creatinine 1.03 0.91 (0.6-1.4) mg/dl Est Cr Clr Drug Dosing 91.0 103.8 ml/min Est GFR ( Amer) 92.4 107.3 ml/min Est GFR (Non-Af Amer) 79.7 92.6 ml/min BUN/Creatinine Ratio 9.7 L 12.1 (10-20) Glucose 143 H 99 (70-99(Fasting)) mg/dl Calcium 8.6 9.2 (8.6-10.3) mg/dl Magnesium 1.7 (1.7-2.4) mg/dl Total Bilirubin 3.3 H D 0.4 (0.2-1.0) mg/dl AST 827 H 19 (13-39) U/L ALT 370 H 13 (7-52) U/L Alkaline Phosphatase 146 H D 47 (34-104) U/L Total Protein 5.9 L 7.2 (6.0-8.3) gm/dl Albumin 3.9 4.8 (3.4-5.0) gm/dl Globulin 2.0 L 2.4 L (2.5-4.0) gm/dl Albumin/Globulin Ratio 2.0 2.0 (0.9-2) Lipase 23 (11-82) U/L Urine Color Yellow Urine Appearance Clear (Clear) Urine pH 5.5 (4.5-7.5) Ur Specific [place] 1.006 (1.000-1.030) Urine Protein Negative (Negative) Urine Glucose (UA) Negative (Negative) Urine Ketones Negative (Negative) Urine Blood Negative (Negative) Urine Nitrite Negative (Negative) Urine Bilirubin Negative (Negative) Urine Urobilinogen Negative (Negative) Ur Leukocyte Esterase Negative (Negative) Ethyl Alcohol mg/dL < 10.0 (<10.0) mg/dl PG Care Time/CCT Total # of Minutes Spent Total Time Spent with Patient: Total time spent is greater than 50% in coordination of care (as documented) at patient's floor/unit and/or counseling patient: Coding Level of Care Code 51827 IN/OBS CONSULT LVL 4,60M Diagnoses Elevated LFTs R79.89
[2023-10-13] MEDS: PANTOprazole 40 MG in SYRINGE 0 ML IV SCH (11:10)
[2023-10-13] MEDS: ONDANSETRON INJ 2 MG/ML 2 ML VIAL IV PRN (12:01)
[2023-10-13] MEDS: LACTATED RINGER'S 1,000 ML IV SCH (12:54)
--- NOTE | 2023-10-13 13:23 | Discharge Summary ---
Discharge Summary Date of Service October 13, 2023 Principal Dx & Hospital Course #1 = Principal Diagnosis (1) Acute cholecystitis: Acute onset of intermittent RUQ abdominal pain that began the evening of 10/10 Gallbladder ultrasound revealed findings concerning for acute cholecystitis; CBD dilated at 1.1 cm MRCP: he gallbladder is borderline dilated measuring 5 cm short axis diameter. There is a 1.7 cm thick layer of calculi ranging in size from 2-14 mm layering posteriorly within the gallbladder. No wall thickening or surrounding fluid is seen. CBD measuring 8mm. Afebrile on arrival but now with intermittent fevers LFTs increasing Tbili 0.4 --> 3.3 AST 19 --> 827 ALT 13 --> 370 ALKP 47 --> 146 General surgery consulted - with increased LFTs/t-bili, concerns for choledocholithiasis recommend GI input for possible ERCP GI consulted - unable to preform ERCP here d/t pt hx of bypass surgery which was preformed at [facility], recommend transfer Continue Zosyn 4.5 g IV q8h Accepted for transfer at [facility] by Dr. Johan Man (2) Alcohol use: Patient reports he currently drinks 8 beers per day, and has done so for many years Denies history of alcohol withdrawal or seizures AWSS at risk protocol with ativan as needed - has not required Daily IV thiamine and folate supplementation (3) Depression: Hold p.o. antidepressants for now (4) H/O gastric bypass: At [facility] approx 15 y ago, unsure surgeon name Plan Disposition: transfer to [facility] Notes For Next Care Provider at risk protocol for ETOH withdrawal - has not required Medication Changes From Visit started on Zosyn Admission HPI Per Admitting Provider Edin is a pleasant 58-year-old male with significant PMH of depression and gastric bypass surgery. He presented for intermittent RUQ abdominal pain that began the evening of 10/10. He reports an acute exacerbation after eating breakfast this morning, which then faded, but returned after trying to eat a small amount of lunch. The pain is in his right upper quadrant and radiates to his right upper scapula. He describes it as an intermittent, burning pain. Exacerbated by eating and palpating the right upper quadrant. He rates the pain 6/10 at present, 8/10 at worst. He did not take any pain medicine prior to coming in. He does have a history of gastric bypass surgery at [place] 15 years ago. Patient reports no prior history of gallbladder issues. No PMH of [place], stroke, or vascular disease. He is formally a type II diabetic, but is currently prediabetic, and reports his A1c has continually been dropping on rechecks. Patient took his regular morning medicines today; no recent change in medications. Patient denies any recent smoking or tobacco use; quit smoking 20 years ago. He is a current everyday alcohol drinker. He reports that he drinks 8 beers per day. Last drink was this morning around lunchtime (1 beer). He denies history of alcohol withdrawal or seizures. He has been drinking approximately 8 beers per day for many years now, and will occasionally have mixed drinks. No history of pancreatitis to his knowledge. Patient is hyperte nsive at 154/97 at time of admission; vitals otherwise stable. 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 Patient denies fever, chills, night-sweats, dizziness, lightheadedness, chest pain, SOB, pleuritic CP, vomiting, and blood in the urine/stool. Discharge Exam General: NAD, VS as above Resp: normal respiratory effort, lungs clear to auscultation CV: RRR, no murmur, Abd: diffuse tenderness, worse RUQ, no hepatosplenomegaly Extremities: Moves all extremities, no edema Neuro: A&O x3, Skin: intact, no lesions noted Hospital Stay Data Consultations 10/12/23 18:08 ED Decision to Admit Stat 10/12/23 18:09 Consult General Surgery Routine 10/13/23 09:01 Consult Gastroenterology Routine Diagnostic Imagining Performed Chest X-Ray 10/12/23 15:59 XR chest 1V portable HISTORY: 58 years-old Male RUQ pain acute right upper quadrant abdominal pain COMPARISON: 07/12/2005 TECHNIQUE: AP view of the chest FINDINGS: Cardiac silhouette is upper limits of normal in size. Mild chronic interstitial coarsening. No pneumothorax or pleural effusion. Bones appear grossly intact. IMPRESSION: No acute process. ACT 112: Negative or not required by law. The above report was generated using voice recognition software. It may contain grammatical, syntax or spelling errors. Electronically signed by: Zi Barth M.D. 10/12/2023 4:33 PM Gallbladder Ultrasound 10/12/23 15:59 ABDOMINAL ULTRASOUND, RIGHT UPPER QUADRANT HISTORY: RUQ pain. COMPARISON: None. FINDINGS: Pancreas: The pancreatic tail is obscured by overlying bowel gas. The remaining portions of the pancreas are within normal limits. Liver: 22 cm in length. No hepatic masses. The main portal vein is patent. Gallbladder: The gallbladder is distended and contains multiple gallstones. No definite gallbladder wall thickening which measures up to 2 mm. Trace pericholecystic fluid is noted. The technologist reports a positive sonographic Shaw sign. CBD: Dilated up to 1.1 cm. Right kidney: No hydronephrosis. IMPRESSION: 1. Distended gallbladder with multiple gallstones and trace pericholecystic fluid. The technologist reported a positive sonographic Shaw sign. Therefore, these findings are concerning for an acute cholecystitis. Surgical consultation recommended. 2. Dilated common bile duct measuring up to 1.1 cm. 3. Hepatomegaly. ACT 112: Negative or not required by law. Electronically signed by: Dalton Kirby M.D. 10/12/2023 5:58 PM Cholangiopancreatography MRI 10/12/23 18:08 Exam(s): MRI MRCP EXAM: MR Abdomen Without Intravenous Contrast, MRCP Protocol CLINICAL HISTORY: Reason for exam: Acute cholecystitis; CBD dilation 1.1 cm. TECHNIQUE: Multiplanar magnetic resonance images of the abdomen without intravenous contrast using MRCP protocol. COMPARISON: Ultrasound from October 12, 2023 FINDINGS: Bile ducts: The common bile duct is nondilated measuring 8 mm. No clear evidence of choledocholithiasis. Gallbladder: The gallbladder is borderline dilated measuring 5 cm short axis diameter. There is a 1.7 cm thick layer of calculi ranging in size from 2-14 mm layering posteriorly within the gallbladder. No wall thickening or surrounding fluid is seen. Liver: The liver is enlarged measuring 20 cm craniocaudad. No focal liver mass lesion is seen. Pancreas: Unremarkable. No ductal dilation. Spleen: The spleen measures 12.7 cm. Adrenals: Unremarkable. No mass. Kidneys and ureters: There is a 8 mm simple cyst in the right kidney. No follow-up is required. No hydronephrosis. Stomach and bowel: Unremarkable. No obstruction. IMPRESSION: 1. The liver is enlarged measuring 20 cm craniocaudad. No focal liver mass lesion is seen. 2. The gallbladder is borderline dilated measuring 5 cm short axis diameter. There is a 1.7 cm thick layer of calculi ranging in size from 2-14 mm layering posteriorly within the gallbladder. No wall thickening or surrounding fluid is seen. 3. The common bile duct is nondilated measuring 8 mm. No clear evidence of choledocholithiasis. Electronically signed by: Jason Aparicio MD 10/12/23 20:34 PM Pending Results Patient Have Any Pending Studies at Discharge: No Discharge Instructions Given to Patient (Per Discharging Provider) You were hospitalized at [facility] after concerns for acute cholecysitis, over night your liver function tests have bumped and concerned that there is more going on. Given your bypass history this will have to be preformed at [place]. You will be transfer. Follow discharge instructions from [place]. Follow up with your PCP within 1 week of discharge from the hospital. For [place]: - started on Zosyn, first dose 10/12 00:34 - thiamine and folic acid supplementation for at risk protocol for ETOH withdrawl (drinks 8 beers/day) Supervising Physician Co-Signing Physician Notes Attending Attestation & Discharge Note: Pt seen/examined, chart reviewed, discharge care plan d/w ANTOLIN Solano. I agree with the thornton components of her documentation. 58yo male who was admitted to [facility] with acute cholecystitis. On hospital day #2 his LFTs all blessing including bilirubin from 0.4 to 3.3. Although MRCP did not show CBD stones his CBD was 8mm, and RUQ U/S estimated his CBD at 11mm. In light of the enlarged CBD on imaging along with worsening LFTs / total bilirubin there was concern for choledocholithiasis. Due to pt's gastric bypass status GI advised transfer to tertiary care center for completion of ERCP. Thus, patient is transferring to [facility] for such. Patient was maintained on IV fluids and IV antibiotics during his stay with stability of his vital signs. Discharge exam - gen - comfortable, NAD eyes - no icterus mouth - MMM heart - RRR s1 s2; no murmur lungs - CTA b/l abd - tender RUQ to palpation, no HSM, soft, no peritoneal signs, ND ext - no edema, pulses 2+ b/l Matthew Braga MD Total Time Total Time Spent Total Time Spent (In Minutes): Time spend day of discharge 60 minutes including direct patient care, medication reconciliation, documentation, review of labs and images, and coordination of care. Prolonged time with disucssion with [facility] and transfer center to get patient accepted for transfer. Coding Level of Care Code 26507 INP/OBS DISCH >30 MIN Diagnoses Acute cholecystitis K81.0 Alcohol use Z78.9 Depression F32.A H/O gastric bypass Z98.84
[2023-10-13 19:41] VITALS: BP 147/79; PULSE 102; RESP 18; TEMP 100; O2SAT 91
== END 2023-10-13 20:37 | disposition short-term general hospital (02) ==
LOC: ED 15:25 → 2N 19:06 → SUATTDRO 19:06 → INTOOBSV 19:06 → 2N 21:30